=== PATIENT | female | born 1970 | race Caucasian/White ===

== ENCOUNTER 2022-01-03 11:24 | Emergency (ER) | payer MEDICAID ==
[~2022-01-03] VITALS: Ht 167.6 cm; Wt 54.0 kg
[2022-01-03 12:28] LABS: BASOPHILS % 0.3 % (0.0-2.0); EOSINOPHILS % 1.1 % (0.0-5.0); HEMATOCRIT. 40.2 % (36.0-48.0); HEMOGLOBIN. 13.6 g/dL (12.0-16.0); LYMPHOCYTES % 14.2 % (20.0-50.0); MEAN CORPUSCULAR HEMOGLOBIN 33.3 pg (28.0-32.0); MEAN CORPUSCULAR VOLUME 98.3 fL (81.0-99.0); MEAN PLATELET VOLUME 7.7 fl (7.4-10.4); MONOCYTES % 7.4 % (2.0-8.0); PLATELET 242 x1000/uL (130-400); RED BLOOD CELL COUNT 4.09 mill/uL (4.2-5.4); RED CELL DISTRIBUTION WIDTH 12.6 % (11.6-14.6)
[2022-01-03] MEDS ORDERED: ACETAMINOPHEN 325MG TABLET PO ONE (12:30)
[2022-01-03 12:38] LABS: CHLORIDE 106 mEq/L (98-107)
[2022-01-03] MEDS ORDERED: ACETAMINOPHEN 325MG TABLET PO NR (14:15)
[2022-01-03 19:14] VITALS: BP 122/69
== END 2022-01-03 19:15 | disposition home or self-care (01) ==
LOC: ER 11:24
DX: R55 Syncope and collapse (principal); S00.03XA Contusion of scalp, initial encounter; R94.31 Abnormal electrocardiogram [ECG] [EKG]; X58.XXXA Exposure to other specified factors, initial encounter; Y93.89 Activity, other specified; Y92.89 Other specified places as the place of occurrence of the external cause
CPT/HCPCS: 36415; 71045; 80053; 83880; 84484; 85025; 93005; 99285